=== PATIENT | male | born 1990 | race Caucasian/White ===

== ENCOUNTER 2022-12-22 13:18 | Emergency (ER) | payer SELFPAY ==
[~2022-12-22] VITALS: Ht 177.8 cm; Wt 95.3 kg
[2022-12-22 14:29] VITALS: BP 123/90; PULSE 74; RESP 18; TEMP 98.7; O2SAT 99
[2022-12-22] MEDS ORDERED: KEN.1C TP (14:32)
[2022-12-22 14:41] VITALS: BP 123/90; PULSE 74; RESP 18; TEMP 98.7; O2SAT 99
--- NOTE | 2022-12-22 14:41 | NUR ---
Patient discharged with v/s stable. Written and verbal after care instructions given and explained. Patient alert, oriented and verbalized understanding of instructions. Ambulatory with steady gait. All questions addressed prior to discharge. ID band removed. Patient advised to follow up with PMD. Rx of KENALOG given. Patient educated on indication of medication including possible reaction and side effects. Opportunity to ask questions provided and answered.
== END 2022-12-22 14:41 | disposition home or self-care (01) ==
LOC: MED 13:18
DX: R21 Rash and other nonspecific skin eruption (principal); Z79.899 Other long term (current) drug therapy
CPT/HCPCS: 99283; Q0163